=== PATIENT | male | born 1985 | race African-American/Black ===

== ENCOUNTER 2018-12-27 02:05 | Emergency (ER) | payer BC ==
[~2018-12-27] VITALS: Ht 185.4 cm; Wt 90.7 kg
[2018-12-27] MEDS ORDERED: AUGMENTIN 875875 MG PO (03:53)
== END 2018-12-27 04:20 | disposition home or self-care (01) ==
LOC: ED 02:05
DX: J32.9 Chronic sinusitis, unspecified (principal); F17.200 Nicotine dependence, unspecified, uncomplicated

== ENCOUNTER → 2020-08-06 | Day surgery (SDC) | payer BC ==
[~2020-08-06] VITALS: Ht 185.4 cm; Wt 112.9 kg
[~2020-08-06] MED LIST: AUGMENTIN 875875 MG PO; CARAFATE1 G1 PO; PROTONIX20 MG PO; PROTONIX40 MG PO
[2020-08-06 07:20] VITALS: BP 131/81
[2020-08-06 08:23] VITALS: BP 115/78
[2020-08-06 08:34] VITALS: BP 122/77
[2020-08-06 08:53] VITALS: BP 130/76
== END | disposition home or self-care (01) ==
LOC: SDC 08-03 08:45
PROVIDERS: ATTEND Surgery
DX: K21.00 Gastro-esophageal reflux disease with esophagitis, without bleeding (principal); K29.50 Unspecified chronic gastritis without bleeding; F17.210 Nicotine dependence, cigarettes, uncomplicated; K44.9 Diaphragmatic hernia without obstruction or gangrene; Z20.828 Contact with and (suspected) exposure to other viral communicable diseases; Z79.899 Other long term (current) drug therapy

== ENCOUNTER → 2023-08-03 | Outpatient (CLI) | payer BC ==
[~2023-08-03] MED LIST changes: +AMLODIPINE BESYL5 MG PO; +IOHEXOL 300 MG/ML 100 ML VIAL IV ONE; +IOHEXOL 300 MG/ML 100 ML VIAL ONE; +NEXIUM40 MG PO; +PENICILLIN VK500 MG PO; +PREDNISONE50 MG PO
== END | disposition home or self-care (01) ==
LOC: CT 00:13
PROVIDERS: ATTEND Internal Medicine
DX: J32.0 Chronic maxillary sinusitis (principal); R59.0 Localized enlarged lymph nodes

== ENCOUNTER 2024-05-14 10:56 | Emergency (ER) | payer BC ==
[~2024-05-14] VITALS: Ht 185.4 cm; Wt 112.9 kg
[~2024-05-14 10:56] MED LIST changes: -IOHEXOL 300 MG/ML 100 ML VIAL IV ONE; -IOHEXOL 300 MG/ML 100 ML VIAL ONE
[2024-05-14 12:01] LABS: EOS # 0.5 10*3/uL (0.0-0.4); EOS % 9.4 % (1.0-4.0); HEMATOCRIT 38.4 % (42.0-52.0); MEAN CELL VOLUME 84.2 fl (80.0-94.0); MEAN CORPUSCULAR HGB 26.3 pg (27.0-31.0); MEAN CORPUSCULAR HGB CONC 31.3 g/dl (33.0-37.0); MEAN PLATELET VOLUME 10.2 fl (9.6-12.3); MONO # 0.6 10*3/uL (0.1-1.0); MONO % 10.7 % (3.0-9.0); NEUT # 2.2 10*3/uL (2.3-7.9); NEUT % 40.8 % (47.0-73.0); PLATELET COUNT AUTOMATED 253 10*3/uL (130-400); RED BLOOD COUNT 4.56 10*6/uL (4.50-5.90); RED CELL DISTRI WIDTH 13.6 % (0-14.5); WHITE BLOOD COUNT 5.4 10*3/uL (4.8-10.8)
[2024-05-14 12:23] LABS: BUN 13 mg/dl (9-23); CHLORIDE 104 mmol/L (98-107); POTASSIUM 3.1 mmol/L (3.4-5.1)
[2024-05-14] MEDS ORDERED: POTASSIUM CHLORIDE 20 MEQ TAB PO ONE (13:00)
[2024-05-14] MEDS ORDERED: AVPAK AZITHROM250 M1 PO (14:33)
[2024-05-14] MEDS ORDERED: AMOX-CLAV 875-1 EACH PO (14:33)
[2024-05-14] MEDS ORDERED: Amoxicillin/Clavulanate Pota 875 MG TAB PO ONE (14:35)
[2024-05-14] MEDS ORDERED: AZITHROMYCIN 250 MG TAB PO ONE (14:35)
== END 2024-05-14 14:46 | disposition home or self-care (01) ==
LOC: ED 10:56
PROVIDERS: Nurse Practitioner Family
DX: J18.9 Pneumonia, unspecified organism (principal); Z20.822 Contact with and (suspected) exposure to COVID-19; E87.6 Hypokalemia; E87.1 Hypo-osmolality and hyponatremia; D64.9 Anemia, unspecified; K21.9 Gastro-esophageal reflux disease without esophagitis; F12.10 Cannabis abuse, uncomplicated; F14.90 Cocaine use, unspecified, uncomplicated; F17.200 Nicotine dependence, unspecified, uncomplicated; Z98.890 Other specified postprocedural states